=== PATIENT | female | born 1985 | race Caucasian/White ===

== ENCOUNTER 2016-04-23 18:38 | Emergency (ER) | payer OTHER ==
[~2016-04-23] VITALS: Ht 160 cm; Wt 106.0 kg
[2016-04-23] MEDS ORDERED: [UNRECOGNIZED DRUG - REMARK] PEG (19:46)
[2016-04-23] MEDS ORDERED: IBUPROFEN 600 MG TABLET ONE (23:50)
[2016-04-23 23:52] VITALS: BP 121/78
[2016-04-24] MEDS ORDERED: IBUPROFEN 600 MG TABLET PO ONE
== END 2016-04-23 23:53 | disposition home or self-care (01) ==
LOC: EMS 18:42
DX: S60.211A Contusion of right wrist, initial encounter (principal); F17.210 Nicotine dependence, cigarettes, uncomplicated; Z88.1 Allergy status to other antibiotic agents; W11.XXXA Fall on and from ladder, initial encounter; Y93.89 Activity, other specified; Y92.89 Other specified places as the place of occurrence of the external cause; Y99.8 Other external cause status
CPT/HCPCS: 99284